=== PATIENT | female | born 1980 | race Asian ===

== ENCOUNTER → 2023-12-20 06:22 | Day surgery (SDC) | payer BC, SELFPAY | LOC: GI 06:22 | PROVIDERS: ATTENDING PHYSICIAN Internal Medicine | DX: Z12.11 Encounter for screening for malignant neoplasm of colon (principal); K64.9 Unspecified hemorrhoids; D12.0 Benign neoplasm of cecum; K63.5 Polyp of colon | CPT/HCPCS: 45385; 45380; 88305 ==

== ENCOUNTER → 2024-06-25 08:44 | Outpatient (REF) | payer BC, SELFPAY | LOC: WDC 08:44 | PROVIDERS: ATTENDING PHYSICIAN Nurse Practitioner Adult Health | DX: Z12.31 Encounter for screening mammogram for malignant neoplasm of breast (principal) | CPT/HCPCS: 77063; 77067 ==